=== PATIENT | female | born 1950 | race Caucasian/White ===

== ENCOUNTER 2022-12-25 21:25 | Inpatient (IN) | payer MEDICARE, OTHER ==
[~2022-12-25] VITALS: Ht 165.1 cm; Wt 62.1 kg
[2022-12-25 10:45] VITALS: BP 140/68; TEMP 98; O2SAT 99
[2022-12-25] MEDS ORDERED: MAG HYDROX/AL HYDROX/SIMETH 30 ML LIQUID UDC PO PRN (22:30)
[2022-12-25] MEDS ORDERED: MAGNESIUM HYDROXIDE 30 ML LIQUID UDC PO PRN (22:30)
[2022-12-25] MEDS: ZOLPIDEM 5 MG TABLET PO PRN (23:51)
[2022-12-26] MEDS: LORAZEPAM 1 MG TABLET PO PRN ×2 (01:46→21:29)
[2022-12-26] MEDS ORDERED: LEVO100T10 PO (05:08)
[2022-12-26] MEDS ORDERED: CYAN100T9 PO (05:08)
[2022-12-26] MEDS ORDERED: BENA10TA74 PO (05:08)
[2022-12-26 08:00] VITALS: BP 127/65; TEMP 96; O2SAT 97
[2022-12-26 16:10] VITALS: BP 127/65; TEMP 96; O2SAT 97
[2022-12-26] MEDS ORDERED: OLANZAPINE 10 MG VIAL IM STA (17:39)
[2022-12-26 19:59] VITALS: BP 149/87; TEMP 98.1; O2SAT 95
[2022-12-26] MEDS: QUETIAPINE FUMARATE 25 MG TABLET PO SCH (20:40)
[2022-12-26] MEDS: ZOLPIDEM 5 MG TABLET PO PRN (22:35)
[2022-12-27 07:48] VITALS: BP 99/60; TEMP 98.2; O2SAT 95
[2022-12-27 07:57] LABS: BASOPHILS % (AUTO) 0.5 % (0.0-2.0); EOSINOPHILS # (AUTO) 0.1 K/uL (0.0-0.7); HEMOGLOBIN 13.7 g/dL (10.9-14.3); LYMPHOCYTES # (AUTO) 1.6 K/uL (0.8-4.8); LYMPHOCYTES % (AUTO) 22.2 % (20.5-51.5); MEAN CORPUSCULAR HEMOGLOBIN 27.1 uug (24.7-32.8); MEAN CORPUSCULAR HGB CONC 33 g/dL (32.3-35.6); MEAN CORPUSCULAR VOLUME 83.2 fL (75.5-95.3); MONOCYTES # (AUTO) 0.4 K/uL (0.1-1.30); MONOCYTES % (AUTO) 5.9 % (0.0-11.0); NEUTROPHILS # (AUTO) 5.1 K/uL (1.8-8.9); NEUTROPHILS % (AUTO) 70.4 % (38.5-71.5); PLATELET COUNT (AUTO) 214 K/uL (179-408); RED BLOOD CELL COUNT(AUTO) 5.04 MIL/uL (3.63-4.92); WHITE BLOOD COUNT (AUTO) 7.2 K/uL (3.8-11.8)
[2022-12-27 07:58] LABS: DIFFERENTIAL COMMENT 1
[2022-12-27 08:23] LABS: THYROID STIMULATING HORMONE 10.377 mIU/mL (0.358-3.740)
[2022-12-27 08:43] LABS: ALANINE AMINOTRANSFERASE 31 U/L (14-59); ALKALINE PHOSPHATASE 64 U/L (50-136); ASPARTATE AMINOTRANSFERASE 21 U/L (15-37); BILIRUBIN,TOTAL 0.4 mg/dL (0.2-1.0); CALCIUM 9.1 mg/dL (8.5-10.1); CARBON DIOXIDE 27 mmol/L (21-32); CHLORIDE 105 mmol/L (98-107); CREATININE 1.3 mg/dL (0.6-1.3); GLUCOSE 114 mg/dL (74-106); MAGNESIUM 2.2 mg/dL (1.8-2.4); POTASSIUM 4.1 mmol/L (3.5-5.1); SODIUM SERUM 143 mmol/L (136-145); TOTAL PROTEIN, SERUM 7.6 g/dL (6.4-8.2); UREA NITROGEN, BLOOD 36 mg/dL (7-18)
[2022-12-27 15:35] VITALS: BP 110/59; TEMP 98.6; O2SAT 99
[2022-12-27] MEDS: ACETAMINOPHEN 325 MG TABLET PO PRN (16:23)
[2022-12-27] MEDS: LORAZEPAM 1 MG TABLET PO PRN (16:24)
[2022-12-27 20:32] VITALS: BP 114/89; TEMP 98; O2SAT 99
[2022-12-27] MEDS: QUETIAPINE FUMARATE 25 MG TABLET PO SCH (21:14)
[2022-12-28] MEDS: LEVOTHYROXINE SODIUM 25 MCG TABLET PO SCH (06:41)
[2022-12-28] MEDS: GLUCERNA SHAKE 237 ML CAN PO SCH (09:00)
[2022-12-28 10:55] VITALS: BP 99/68; TEMP 98; O2SAT 98
[2022-12-28] MEDS: LORAZEPAM 1 MG TABLET PO PRN ×2 (14:01→19:34)
[2022-12-28 17:09] VITALS: BP 150/62; TEMP 98.2; O2SAT 99
[2022-12-28] MEDS: ACETAMINOPHEN 325 MG TABLET PO PRN (19:34)
[2022-12-28] MEDS: QUETIAPINE FUMARATE 25 MG TABLET PO SCH (20:36)
[2022-12-28 21:20] VITALS: BP 139/69; TEMP 98.2; O2SAT 98
[2022-12-28] MEDS: ZOLPIDEM 5 MG TABLET PO PRN (22:04)
[2022-12-29] MEDS: LORAZEPAM 1 MG TABLET PO PRN ×2 (03:23→17:42)
[2022-12-29] MEDS: ACETAMINOPHEN 325 MG TABLET PO PRN ×2 (03:23→15:46)
[2022-12-29] MEDS: LEVOTHYROXINE SODIUM 25 MCG TABLET PO SCH (06:17)
[2022-12-29 08:00] VITALS: BP 141/67; TEMP 98; O2SAT 97
[2022-12-29] MEDS: GLUCERNA SHAKE 237 ML CAN PO SCH (09:00)
[2022-12-29] MEDS: BENAZEPRIL HCL 10 MG TABLET PO SCH (13:10)
[2022-12-29 15:51] VITALS: BP 128/72; TEMP 97.5; O2SAT 96
[2022-12-29] MEDS: QUETIAPINE FUMARATE 25 MG TABLET PO SCH (20:00)
[2022-12-29] MEDS: ATORVASTATIN 10 MG TABLET PO SCH (20:07)
[2022-12-29 21:21] VITALS: BP 143/75; TEMP 98; O2SAT 98
[2022-12-29] MEDS: ZOLPIDEM 5 MG TABLET PO PRN (22:24)
[2022-12-30] MEDS: LORAZEPAM 1 MG TABLET PO PRN (05:51)
[2022-12-30] MEDS: LEVOTHYROXINE SODIUM 100 MCG TABLET PO SCH (06:04)
[2022-12-30 07:55] VITALS: BP 92/51; TEMP 98; O2SAT 96
[2022-12-30] MEDS: CYANOCOBALAMIN 100 MCG TABLET PO SCH (08:39)
[2022-12-30] MEDS: GLUCERNA SHAKE 237 ML CAN PO SCH (08:50)
[2022-12-30] MEDS: BENAZEPRIL HCL 10 MG TABLET PO SCH (08:51)
[2022-12-30 16:32] VITALS: BP 138/80; TEMP 98; O2SAT 96
[2022-12-30] MEDS: QUETIAPINE FUMARATE 25 MG TABLET PO SCH ×2 (16:39→20:35)
[2022-12-30 20:00] VITALS: BP 121/67; TEMP 97.2; O2SAT 96
[2022-12-30] MEDS: ATORVASTATIN 10 MG TABLET PO SCH (20:35)
[2022-12-30] MEDS: ZOLPIDEM 5 MG TABLET PO PRN (23:12)
[2022-12-31] MEDS: LEVOTHYROXINE SODIUM 100 MCG TABLET PO SCH (06:31)
[2022-12-31 08:05] VITALS: BP 134/65; TEMP 98.1; O2SAT 98
[2022-12-31] MEDS: BENAZEPRIL HCL 10 MG TABLET PO SCH ×2 (09:00→15:22)
[2022-12-31] MEDS: CYANOCOBALAMIN 100 MCG TABLET PO SCH ×2 (09:00→15:22)
[2022-12-31] MEDS: GLUCERNA SHAKE 237 ML CAN PO SCH (09:00)
[2022-12-31] MEDS: QUETIAPINE FUMARATE 25 MG TABLET PO SCH ×2 (16:09→20:25)
[2022-12-31 16:15] VITALS: BP 137/66; TEMP 98; O2SAT 97
[2022-12-31] MEDS: LORAZEPAM 1 MG TABLET PO PRN (16:55)
[2022-12-31 19:51] VITALS: BP 96/47; TEMP 98; O2SAT 97
[2022-12-31] MEDS: ATORVASTATIN 10 MG TABLET PO SCH (20:25)
[2022-12-31 20:39] VITALS: BP 107/56
[2022-12-31] MEDS: ZOLPIDEM 5 MG TABLET PO PRN (23:02)
[2023-01-01] MEDS: LEVOTHYROXINE SODIUM 100 MCG TABLET PO SCH (06:23)
[2023-01-01 07:54] VITALS: BP 116/57; TEMP 98.2; O2SAT 99
[2023-01-01] MEDS: CYANOCOBALAMIN 100 MCG TABLET PO SCH (08:52)
[2023-01-01] MEDS: BENAZEPRIL HCL 10 MG TABLET PO SCH (08:53)
[2023-01-01] MEDS: GLUCERNA SHAKE 237 ML CAN PO SCH ×3 (08:53→16:12)
[2023-01-01] MEDS: LORAZEPAM 1 MG TABLET PO PRN ×2 (12:12→18:47)
[2023-01-01 15:12] VITALS: BP 92/59; TEMP 98.3; O2SAT 100
[2023-01-01] MEDS: QUETIAPINE FUMARATE 25 MG TABLET PO SCH ×2 (16:11→20:31)
[2023-01-01 20:31] VITALS: BP 100/55; TEMP 97.8; O2SAT 97
[2023-01-01] MEDS: ATORVASTATIN 10 MG TABLET PO SCH (20:31)
[2023-01-02] MEDS: LEVOTHYROXINE SODIUM 100 MCG TABLET PO SCH (06:55)
[2023-01-02] MEDS: BENAZEPRIL HCL 10 MG TABLET PO SCH (08:37)
[2023-01-02] MEDS: GLUCERNA SHAKE 237 ML CAN PO SCH ×3 (08:37→16:09)
[2023-01-02] MEDS: CYANOCOBALAMIN 100 MCG TABLET PO SCH (08:37)
[2023-01-02 09:18] VITALS: BP 136/62; TEMP 98.2; O2SAT 98
[2023-01-02] MEDS: QUETIAPINE FUMARATE 25 MG TABLET PO SCH ×3 (10:26→20:05)
[2023-01-02] MEDS: LORAZEPAM 1 MG TABLET PO PRN ×2 (15:14→23:58)
[2023-01-02 15:36] VITALS: BP 112/43; TEMP 98; O2SAT 98
[2023-01-02] MEDS: ATORVASTATIN 10 MG TABLET PO SCH (20:05)
[2023-01-02 20:17] VITALS: BP 128/62; TEMP 98; O2SAT 98
[2023-01-02] MEDS: ZOLPIDEM 5 MG TABLET PO PRN (22:06)
[2023-01-03 05:43] LABS: *BILIRUBIN,URIN NEGATIVE (NEGATIVE); *BLOOD, URINE NEGATIVE (NEGATIVE); *CLARITY,URINE CLEAR (CLEAR); *COLOR,URINE YELLOW (YELLOW); *KETONES,URINE NEGATIVE (NEGATIVE); *PROTEIN,URINE NEGATIVE (NEGATIVE); *UROBILINOGEN,URINE 0.2 E.U./dl (NORMAL); LEUKOCYTE ESTERASE ,URINE 1+ (NEGATIVE); NITRITE, URINE NEGATIVE (NEGATIVE); PH,URINE 5.5 (5.0-8.0); UGLUCOSE NEGATIVE (NEGATIVE)
[2023-01-03 05:52] LABS: BACTERIA,URINE FEW /HPF (NONE SEEN); SQUAMOUS EPITHELIAL CELL,UR FEW /HPF (NONE SEEN); WBC,URINE 20-50 /HPF (0-3)
[2023-01-03] MEDS: LEVOTHYROXINE SODIUM 100 MCG TABLET PO SCH (06:21)
[2023-01-03 07:30] VITALS: BP 107/51; TEMP 97.3; O2SAT 96
[2023-01-03] MEDS: BENAZEPRIL HCL 10 MG TABLET PO SCH (09:00)
[2023-01-03] MEDS: GLUCERNA SHAKE 237 ML CAN PO SCH ×3 (09:00→17:00)
[2023-01-03] MEDS: QUETIAPINE FUMARATE 25 MG TABLET PO SCH ×3 (09:35→20:18)
[2023-01-03] MEDS: CYANOCOBALAMIN 100 MCG TABLET PO SCH (09:36)
[2023-01-03 16:00] VITALS: BP 106/66; TEMP 97.9; O2SAT 98
[2023-01-03] MEDS: ACETAMINOPHEN 325 MG TABLET PO PRN (17:18)
[2023-01-03] MEDS: LORAZEPAM 1 MG TABLET PO PRN (17:18)
[2023-01-03 19:45] VITALS: BP 113/65; TEMP 98; O2SAT 96
[2023-01-03] MEDS: CEphaleXIN 500 MG CAPSULE PO SCH (20:18)
[2023-01-03] MEDS: ATORVASTATIN 10 MG TABLET PO SCH (20:18)
[2023-01-03] MEDS: ZOLPIDEM 5 MG TABLET PO PRN (22:24)
[2023-01-04] MEDS: LEVOTHYROXINE SODIUM 100 MCG TABLET PO SCH (06:23)
[2023-01-04 07:44] VITALS: BP 135/54; TEMP 98.4; O2SAT 94
[2023-01-04] MEDS: BENAZEPRIL HCL 10 MG TABLET PO SCH (09:16)
[2023-01-04] MEDS: CEphaleXIN 500 MG CAPSULE PO SCH ×2 (09:16→20:39)
[2023-01-04] MEDS: GLUCERNA SHAKE 237 ML CAN PO SCH ×3 (09:17→17:28)
[2023-01-04] MEDS: CYANOCOBALAMIN 100 MCG TABLET PO SCH (09:18)
[2023-01-04] MEDS: QUETIAPINE FUMARATE 25 MG TABLET PO SCH ×2 (09:18→16:39)
[2023-01-04] MEDS: LORAZEPAM 1 MG TABLET PO PRN (11:41)
[2023-01-04] MEDS: ACETAMINOPHEN 325 MG TABLET PO PRN ×2 (11:45→15:50)
[2023-01-04 15:06] VITALS: BP 117/56; TEMP 97.6; O2SAT 96
[2023-01-04 20:09] VITALS: BP 100/58; TEMP 98; O2SAT 98
[2023-01-04] MEDS: ATORVASTATIN 10 MG TABLET PO SCH (20:40)
[2023-01-04] MEDS ORDERED: QUETIAPINE FUMARATE 25 MG TABLET PO SCH (21:00)
[2023-01-05] MEDS: LEVOTHYROXINE SODIUM 100 MCG TABLET PO SCH (07:00)
[2023-01-05 08:02] VITALS: BP 130/80; TEMP 98.4; O2SAT 96
[2023-01-05] MEDS: CEphaleXIN 500 MG CAPSULE PO SCH (08:49)
[2023-01-05] MEDS: QUETIAPINE FUMARATE 25 MG TABLET PO SCH (08:49)
[2023-01-05 08:52] VITALS: BP 130/80
[2023-01-05] MEDS: BENAZEPRIL HCL 10 MG TABLET PO SCH (08:52)
[2023-01-05] MEDS: CYANOCOBALAMIN 100 MCG TABLET PO SCH (09:19)
[2023-01-05] MEDS: GLUCERNA SHAKE 237 ML CAN PO SCH ×2 (09:20→12:42)
== END 2023-01-05 12:45 | disposition still patient (30) | DRG 885 ==
LOC: GPS 21:25
PROVIDERS: ADMIT Psychiatry & Neurology Psychiatry; ATTEND Internal Medicine
DX: F29 Unspecified psychosis not due to a substance or known physiological condition (principal); N17.0 Acute kidney failure with tubular necrosis; F03.918 Unspecified dementia, unspecified severity, with other behavioral disturbance; N39.0 Urinary tract infection, site not specified; E78.5 Hyperlipidemia, unspecified; E03.9 Hypothyroidism, unspecified; I10 Essential (primary) hypertension; Z90.49 Acquired absence of other specified parts of digestive tract; Z79.899 Other long term (current) drug therapy; Z86.79 Personal history of other diseases of the circulatory system; Z79.890 Hormone replacement therapy
CPT/HCPCS: 36415; 70450; 83735; 84100; 84443; 85025; J2358

== ENCOUNTER 2024-09-16 11:20 | Inpatient (IN) | payer MEDICARE, OTHER ==
[~2024-09-16] VITALS: Ht 165.1 cm; Wt 57.2 kg
[~2024-09-16 11:20] MED LIST: BENA10TA74 PO; CYAN100T9 PO; LEVO100T10 PO
[2024-09-16] MEDS ORDERED: MAGN400O6 PO (11:35)
[2024-09-16] MEDS ORDERED: ESCI-9 PO (11:35)
[2024-09-16] MEDS ORDERED: VITA-287 PO (11:35)
[2024-09-16] MEDS ORDERED: ONDA-104 PO (11:35)
[2024-09-16] MEDS ORDERED: ACET325C7 PO (11:35)
[2024-09-16] MEDS ORDERED: QUET25TA PO (11:35)
[2024-09-16] MEDS ORDERED: BISA10SU61 RC (11:35)
[2024-09-16] MEDS ORDERED: LEVO112T5 PO (11:35)
[2024-09-16] MEDS ORDERED: ATOR10TA PO (11:35)
[2024-09-16 12:00] LABS: BASOPHILS # (AUTO) 0.1 K/UL (0.0-0.2); EOSINOPHILS # (AUTO) 0.2 K/uL (0.0-0.7); EOSINOPHILS % (AUTO) 3.4 % (0.0-7.0); HEMATOCRIT 39.5 % (31.2-41.9); HEMOGLOBIN 12.9 g/dL (10.9-14.3); LYMPHOCYTES # (AUTO) 1.6 K/uL (0.8-4.8); LYMPHOCYTES % (AUTO) 26.4 % (20.5-51.5); MEAN CORPUSCULAR HEMOGLOBIN 27.4 uug (24.7-32.8); MEAN CORPUSCULAR HGB CONC 33 g/dL (32.3-35.6); MEAN CORPUSCULAR VOLUME 83.9 fL (75.5-95.3); MONOCYTES # (AUTO) 0.4 K/uL (0.1-1.30); MONOCYTES % (AUTO) 7.1 % (0.0-11.0); NEUTROPHILS # (AUTO) 3.7 K/uL (1.8-8.9); NEUTROPHILS % (AUTO) 62.1 % (38.5-71.5); PLATELET COUNT (AUTO) 180 K/uL (179-408); RED BLOOD CELL COUNT(AUTO) 4.71 MIL/uL (3.63-4.92); RED CELL DISTRIBUTION WIDTH 14.7 % (12.3-17.7); WHITE BLOOD COUNT (AUTO) 5.9 K/uL (3.8-11.8)
[2024-09-16 12:08] LABS: CALCIUM 9.1 mg/dL (8.5-10.1); CARBON DIOXIDE 31 mmol/L (21-32); CHLORIDE 106 mmol/L (98-107); CREATININE 1.1 mg/dL (0.6-1.3); DIFFERENTIAL COMMENT 1; GLUCOSE 94 mg/dL (74-106); POTASSIUM 4.2 mmol/L (3.5-5.1); SODIUM SERUM 143 mmol/L (136-145); UREA NITROGEN, BLOOD 37 mg/dL (7-18)
[2024-09-16 12:11] LABS: ETHANOL < 3 MG/DL (0-10)
[2024-09-16 12:24] LABS: ALANINE AMINOTRANSFERASE 28 U/L (14-59); ALBUMIN 3.6 g/dL (3.4-5.0); ALKALINE PHOSPHATASE 76 U/L (50-136); ASPARTATE AMINOTRANSFERASE 19 U/L (15-37); BILIRUBIN,DIRECT 0.1 mg/dL (0.0-0.2); BILIRUBIN,TOTAL 0.2 mg/dL (0.2-1.0)
[2024-09-16 12:28] LABS: ACETAMINOPHEN < 2.0 ug/mL (10-30)
[2024-09-16 12:39] LABS: *BILIRUBIN,URIN NEGATIVE (NEGATIVE); *BLOOD, URINE NEGATIVE (NEGATIVE); *CLARITY,URINE CLEAR (CLEAR); *COLOR,URINE YELLOW (YELLOW); *KETONES,URINE NEGATIVE (NEGATIVE); *PROTEIN,URINE NEGATIVE (NEGATIVE); *UROBILINOGEN,URINE 0.2 E.U./dl (NORMAL); LEUKOCYTE ESTERASE ,URINE NEGATIVE (NEGATIVE); NITRITE, URINE NEGATIVE (NEGATIVE); PH,URINE 5.5 (5.0-8.0); UGLUCOSE NEGATIVE (NEGATIVE)
[2024-09-16 12:44] LABS: *AMPHETAMINE, URINE NEGATIVE (NEGATIVE); *BARBITURATE, URINE NEGATIVE (NEGATIVE); *BENZODIAZEPINE, URINE NEGATIVE (NEGATIVE); *CANNABINOID, URINE NEGATIVE (NEGATIVE); *COCCAINE, URINE NEGATIVE (NEGATIVE); *OPIATE, URINE NEGATIVE (NEGATIVE); *PHENCYCLIDINE SCREEN,URINE NEGATIVE (NEGATIVE); FENTANYL, URINE NEGATIVE (NEGATIVE)
[2024-09-16] MEDS ORDERED: MAG HYDROX/AL HYDROX/SIMETH 30 ML LIQUID UDC PO PRN (16:30)
[2024-09-16] MEDS ORDERED: LORAZEPAM 0.5 MG TABLET PO PRN (16:30)
[2024-09-16] MEDS ORDERED: ACETAMINOPHEN 325 MG TABLET PO PRN (16:30)
[2024-09-16] MEDS ORDERED: MAGNESIUM HYDROXIDE 30 ML LIQUID UDC PO PRN (16:30)
[2024-09-16 16:54] VITALS: BP 141/73; TEMP 97.7; O2SAT 97
[2024-09-16] MEDS: LORAZEPAM 1 MG TABLET PO PRN (17:28)
[2024-09-16 20:09] VITALS: BP 125/56; TEMP 98.1; O2SAT 98
[2024-09-16] MEDS ORDERED: BISACODYL 10 MG SUPP.RECT RC PRN (20:30)
[2024-09-16] MEDS: ATORVASTATIN 10 MG TABLET PO SCH (20:34)
[2024-09-16] MEDS: ZOLPIDEM 5 MG TABLET PO PRN (22:46)
[2024-09-17] MEDS: LEVOTHYROXINE SODIUM 112 MCG TABLET PO SCH (06:36)
[2024-09-17 07:39] LABS: BASOPHILS % (AUTO) 0.8 % (0.0-2.0); EOSINOPHILS # (AUTO) 0.2 K/uL (0.0-0.7); EOSINOPHILS % (AUTO) 4.4 % (0.0-7.0); HEMATOCRIT 39.6 % (31.2-41.9); HEMOGLOBIN 13.1 g/dL (10.9-14.3); LYMPHOCYTES # (AUTO) 1.6 K/uL (0.8-4.8); MEAN CORPUSCULAR HEMOGLOBIN 27.5 uug (24.7-32.8); MEAN CORPUSCULAR HGB CONC 33 g/dL (32.3-35.6); MEAN CORPUSCULAR VOLUME 83.1 fL (75.5-95.3); MONOCYTES # (AUTO) 0.4 K/uL (0.1-1.30); MONOCYTES % (AUTO) 7.1 % (0.0-11.0); NEUTROPHILS # (AUTO) 3.1 K/uL (1.8-8.9); NEUTROPHILS % (AUTO) 57.7 % (38.5-71.5); PLATELET COUNT (AUTO) 177 K/uL (179-408); RED BLOOD CELL COUNT(AUTO) 4.77 MIL/uL (3.63-4.92); RED CELL DISTRIBUTION WIDTH 14.6 % (12.3-17.7); WHITE BLOOD COUNT (AUTO) 5.4 K/uL (3.8-11.8)
[2024-09-17 07:46] LABS: DIFFERENTIAL COMMENT 1
[2024-09-17 08:05] LABS: THYROID STIMULATING HORMONE 8.285 mIU/mL (0.358-3.740)
[2024-09-17] MEDS ORDERED: LORAZEPAM 1 MG TABLET PO PRN (08:15)
[2024-09-17] MEDS ORDERED: LORAZEPAM 0.5 MG TABLET PO PRN (08:15)
[2024-09-17 08:17] LABS: CARBON DIOXIDE 30 mmol/L (21-32); CHLORIDE 106 mmol/L (98-107); GLUCOSE 96 mg/dL (74-106); MAGNESIUM 2.2 mg/dL (1.8-2.4); PHOSPHOROUS 4.1 mg/dL (2.5-4.9); POTASSIUM 4.3 mmol/L (3.5-5.1); SODIUM SERUM 144 mmol/L (136-145); UREA NITROGEN, BLOOD 30 mg/dL (7-18)
[2024-09-17 08:18] VITALS: BP 127/63; TEMP 98; O2SAT 98
[2024-09-17] MEDS: ENSURE ENLIVE (VAN) 240 ML LIQUID PO SCH (09:00)
[2024-09-17] MEDS: VITAMIN B COMPLEX 1 TABLET PO SCH (09:31)
[2024-09-17] MEDS: BENAZEPRIL HCL 10 MG TABLET PO SCH (09:31)
[2024-09-17] MEDS: LORAZEPAM 1 MG TABLET PO PRN (13:33)
[2024-09-17 15:20] VITALS: BP 142/86; TEMP 98; O2SAT 98
[2024-09-17 20:00] VITALS: BP 138/81; TEMP 97.8; O2SAT 95
[2024-09-17] MEDS: QUETIAPINE FUMARATE 25 MG TABLET PO SCH (20:28)
[2024-09-17] MEDS: ZOLPIDEM 5 MG TABLET PO PRN (22:42)
[2024-09-18 07:54] VITALS: BP 112/76; TEMP 98; O2SAT 96
[2024-09-18 15:51] VITALS: BP 122/69; TEMP 98; O2SAT 96
[2024-09-18 20:00] VITALS: BP 121/63; TEMP 98; O2SAT 94
[2024-09-19 07:51] VITALS: BP 90/61; TEMP 98; O2SAT 98
[2024-09-19 15:57] VITALS: BP 127/70; TEMP 98; O2SAT 98
[2024-09-19 19:50] VITALS: BP 129/70; TEMP 97.2; O2SAT 99
[2024-09-19] MEDS: REMEDY ESSENTIAL ZINC PASTE 113 GM TOP SCH (20:04)
[2024-09-20 07:52] VITALS: BP 126/60; TEMP 98.2; O2SAT 96
[2024-09-20 15:38] VITALS: BP 155/65; TEMP 98.2; O2SAT 99
[2024-09-20] MEDS: ENSURE ENLIVE (VAN) 240 ML LIQUID PO SCH (16:07)
[2024-09-20 21:04] VITALS: BP 113/64; TEMP 97.3; O2SAT 96
[2024-09-21 08:10] VITALS: BP 137/86; TEMP 98.3; O2SAT 98
[2024-09-21 16:05] VITALS: BP 145/92; TEMP 98.1; O2SAT 99
[2024-09-21 21:24] VITALS: BP 105/54; TEMP 98.6; O2SAT 96
[2024-09-22 08:07] VITALS: BP 133/71; TEMP 98.3; O2SAT 99
[2024-09-22] MEDS: QUETIAPINE FUMARATE 25 MG TABLET PO SCH (09:17)
[2024-09-22 20:42] VITALS: BP 102/59; TEMP 98.3; O2SAT 99
[2024-09-23 08:05] VITALS: BP 111/68; TEMP 98; O2SAT 96
[2024-09-23 16:12] VITALS: BP 124/71; TEMP 98.5; O2SAT 100
[2024-09-23 19:36] VITALS: BP 93/57; TEMP 98.4; O2SAT 100
[2024-09-23] MEDS: QUETIAPINE FUMARATE 25 MG TABLET PO SCH (20:29)
[2024-09-24 07:54] VITALS: BP 100/62; TEMP 98; O2SAT 98
[2024-09-24 15:53] VITALS: BP 134/63; TEMP 98; O2SAT 96
[2024-09-24 20:06] VITALS: BP 122/67; TEMP 98; O2SAT 100
[2024-09-25 08:02] VITALS: BP 110/65; TEMP 98; O2SAT 98
[2024-09-25 15:24] VITALS: BP 132/63; TEMP 98; O2SAT 98
[2024-09-25 20:00] VITALS: BP 102/63; TEMP 97.8; O2SAT 99
[2024-09-26 08:50] VITALS: BP 103/46; TEMP 97.2; O2SAT 96
[2024-09-26 16:57] VITALS: BP 121/76; TEMP 97.7; O2SAT 97
[2024-09-26 19:50] VITALS: BP 119/65; TEMP 98; O2SAT 98
[2024-09-26] MEDS: QUETIAPINE FUMARATE 100 MG TABLET PO SCH (20:56)
[2024-09-26] MEDS: LORAZEPAM 1 MG TABLET PO PRN (20:56)
[2024-09-26] MEDS ORDERED: QUETIAPINE FUMARATE 25 MG TABLET PO SCH (21:00)
[2024-09-27 08:00] VITALS: BP 114/55; TEMP 98; O2SAT 98
[2024-09-27 15:20] VITALS: BP 108/63; TEMP 98; O2SAT 98
[2024-09-27 19:36] VITALS: BP 116/68; TEMP 98.2; O2SAT 98
[2024-09-27] MEDS: LORAZEPAM 0.5 MG TABLET PO PRN (21:10)
[2024-09-28 08:19] VITALS: BP 100/58; TEMP 98; O2SAT 96
[2024-09-28 15:07] VITALS: BP 99/59; TEMP 98; O2SAT 96
[2024-09-28 19:59] VITALS: BP 120/74; TEMP 97.2; O2SAT 97
[2024-09-29 08:10] VITALS: TEMP 98.1
[2024-09-29 09:00] VITALS: BP 104/60
== END 2024-09-29 15:39 | DRG 885 ==
LOC: ER 11:20 → GPS 15:56
PROVIDERS: ADMIT Psychiatry & Neurology Psychiatry; ATTEND Nurse Practitioner Acute Care
DX: F29 Unspecified psychosis not due to a substance or known physiological condition (principal); F03.93 Unspecified dementia, unspecified severity, with mood disturbance; F03.911 Unspecified dementia, unspecified severity, with agitation; F03.918 Unspecified dementia, unspecified severity, with other behavioral disturbance; G47.00 Insomnia, unspecified; E03.9 Hypothyroidism, unspecified; E78.5 Hyperlipidemia, unspecified; Z79.890 Hormone replacement therapy; Z79.899 Other long term (current) drug therapy; Z86.73 Personal history of transient ischemic attack (TIA), and cerebral infarction without residual deficits; I10 Essential (primary) hypertension; Z91.148 Patient's other noncompliance with medication regimen for other reason
CPT/HCPCS: 36415; 83735; 84100; 84443; 85025; A4606; A4663; C1758; G0480